=== PATIENT | female | born 1960 | race Caucasian/White ===

== ENCOUNTER 2018-05-07 14:41 | Emergency (ER) | payer OTHER ==
[~2018-05-07] VITALS: Ht 157.5 cm; Wt 59.0 kg
[~2018-05-07 14:41] MED LIST: AMBEREN; ANAPROX DS550 MG PO; ATENOLOL; CALCIUM; CALCIUM +D & M1 EAC1 PO; CARISOPRODOL; CARISOPRODOL 3350 MG; CEFDINIR300 MG PO; CIPROFLOXACIN500 M1 PO; CLONIDINE0.1 PO; CORTISPORIN OTI10 ML OTIC; ESTRACE PO; FISH OIL 1,0001 EAC5; FLEXERIL PO; HYDROCODON-ACE1 EAC7 PO; HYDROCODON-ACE1 EAC8 PO; LIPITOR 20 MG T20 M1; LIPITOR20 MG PO; LISINOPRIL10 MG; LOPRESSOR 50 MG50 M1; LOPRESSOR 50 MG50 M1 PO; MEDROL DOSPAK21 TAB PO; METHADONE HCL 110 M1; METOPROLOL PO; MULTIVITAMINS PO; NORCO; NORCO 10-325 T1 EACH PO; NORCO 5-325 TA1 EACH; NORCO 5-325 TA1 EACH PO; ONDANSETRON HCL4 M2 PO; PERCOCET 10-321 EACH PO; PERCOCET 5-3251 EACH PO; PHENERGAN 25 MG25 M1 PO; PREDNISONE 10 M10 MG PO; PREDNISONE 20 M20 M1 PO; PRINIVIL5 MG PO; ROBAXIN 750 MG750 M1 PO; ROVIN-CF OF TA1 EACH; SUBOXONE 8 MG-1 EAC1 SL; SUBOXONE 8 MG-1 EAC2 SL; TOPROL XL100 MG; TRAMADOL 50 MG50 MG PO; VALIUM2 MG PO; VICODIN 5-5001 EACH PO; VITAMIN B-12500 MCG PO; VITAMIN D-32000 UNIT; VITAMINC500 PO; ZOFRAN 4 MG ORAL4 MG PO; ZOFRAN ODT4 MG PO; ZOFRAN4 MG PO
[2018-05-07] MEDS ORDERED: ONDANSETRON HCL4 M2 PO (14:56)
[2018-05-07 16:02] VITALS: BP 134/64
== END 2018-05-07 16:03 | disposition home or self-care (01) ==
LOC: M.ERS 14:41
DX: M54.5 Low back pain (principal); I10 Essential (primary) hypertension; M79.7 Fibromyalgia; Z88.5 Allergy status to narcotic agent; Z88.6 Allergy status to analgesic agent; Z88.8 Allergy status to other drugs, medicaments and biological substances; Z98.890 Other specified postprocedural states; Z90.710 Acquired absence of both cervix and uterus

== ENCOUNTER 2018-05-31 23:49 | Emergency (ER) | payer OTHER ==
[~2018-05-31] VITALS: Ht 160 cm; Wt 59.9 kg
[2018-06-01] MEDS ORDERED: BACLOFEN 10MG T10 MG PO (00:51)
[2018-06-01 01:08] VITALS: BP 163/85
== END 2018-06-01 01:09 | disposition home or self-care (01) ==
LOC: M.ERS 23:49
DX: G89.29 Other chronic pain (principal); M54.5 Low back pain; I10 Essential (primary) hypertension; M79.7 Fibromyalgia; Z88.5 Allergy status to narcotic agent; Z88.6 Allergy status to analgesic agent; Z88.8 Allergy status to other drugs, medicaments and biological substances; Z90.710 Acquired absence of both cervix and uterus; Z98.890 Other specified postprocedural states

== ENCOUNTER 2018-07-22 01:00 | Emergency (ER) | payer OTHER ==
[~2018-07-22] VITALS: Ht 160 cm; Wt 59.0 kg
[~2018-07-22 01:00] MED LIST changes: +BACLOFEN 10MG T10 MG PO
[2018-07-22] MEDS ORDERED: CARISOPRODOL 3350 MG PO (01:09)
[2018-07-22] MEDS ORDERED: NORCO 5-325 TA1 EACH PO (01:16)
[2018-07-22] MEDS ORDERED: FLEXERIL PO (01:16)
[2018-07-22 01:24] VITALS: BP 167/106
== END 2018-07-22 01:24 | disposition home or self-care (01) ==
LOC: M.ERS 01:00
DX: S39.012A Strain of muscle, fascia and tendon of lower back, initial encounter (principal); I10 Essential (primary) hypertension; Z90.710 Acquired absence of both cervix and uterus; M79.7 Fibromyalgia; Z88.5 Allergy status to narcotic agent; Z88.8 Allergy status to other drugs, medicaments and biological substances; X58.XXXA Exposure to other specified factors, initial encounter; Y93.89 Activity, other specified; Y92.89 Other specified places as the place of occurrence of the external cause; Y99.8 Other external cause status

== ENCOUNTER 2018-09-14 01:17 | Emergency (ER) | payer OTHER ==
[~2018-09-14] VITALS: Ht 160 cm; Wt 60.3 kg
[~2018-09-14 01:17] MED LIST changes: +CARISOPRODOL 3350 MG PO
[2018-09-14 03:06] VITALS: BP 120/72
== END 2018-09-14 03:07 | disposition home or self-care (01) ==
LOC: M.ERS 01:17
DX: G89.29 Other chronic pain (principal); M54.5 Low back pain; R11.2 Nausea with vomiting, unspecified; R51 Headache; I10 Essential (primary) hypertension; M79.7 Fibromyalgia; F17.210 Nicotine dependence, cigarettes, uncomplicated; Z90.710 Acquired absence of both cervix and uterus; Z98.890 Other specified postprocedural states; Z88.6 Allergy status to analgesic agent; Z88.5 Allergy status to narcotic agent; Z88.8 Allergy status to other drugs, medicaments and biological substances

== ENCOUNTER 2018-12-28 14:29 | Emergency (ER) | payer OTHER ==
[~2018-12-28] VITALS: Ht 157.5 cm; Wt 59.9 kg
[2018-12-28] MEDS ORDERED: BUTALB-APAP-CA1 EACH PO (15:31)
[2018-12-28 16:07] VITALS: BP 146/83
== END 2018-12-28 16:08 | disposition home or self-care (01) ==
LOC: M.ERS 14:29
DX: M54.5 Low back pain (principal); R51 Headache; I10 Essential (primary) hypertension; M79.7 Fibromyalgia; Z90.710 Acquired absence of both cervix and uterus; Z98.890 Other specified postprocedural states; Z88.5 Allergy status to narcotic agent; Z88.6 Allergy status to analgesic agent; Z88.8 Allergy status to other drugs, medicaments and biological substances

== ENCOUNTER 2019-03-18 20:00 | Emergency (ER) | payer OTHER ==
[~2019-03-18] VITALS: Ht 157.5 cm; Wt 60.3 kg
[~2019-03-18 20:00] MED LIST changes: +BUTALB-APAP-CA1 EACH PO
[2019-03-18 21:16] VITALS: BP 150/80
== END 2019-03-18 21:17 | disposition home or self-care (01) ==
LOC: M.ERS 20:00
DX: M54.30 Sciatica, unspecified side (principal); G89.29 Other chronic pain; M54.9 Dorsalgia, unspecified; I10 Essential (primary) hypertension; M79.7 Fibromyalgia; Z98.890 Other specified postprocedural states; Z88.5 Allergy status to narcotic agent; Z88.6 Allergy status to analgesic agent; Z88.8 Allergy status to other drugs, medicaments and biological substances; Z90.710 Acquired absence of both cervix and uterus

== ENCOUNTER 2019-11-13 18:13 | Emergency (ER) | payer OTHER ==
[~2019-11-13] VITALS: Ht 157.5 cm; Wt 57.6 kg
[2019-11-13] MEDS ORDERED: MEDROLDOSEPACK PO (19:12)
[2019-11-13 19:25] VITALS: BP 115/70
== END 2019-11-13 19:26 | disposition home or self-care (01) ==
LOC: M.ERS 18:13
DX: M54.5 Low back pain (principal); G89.29 Other chronic pain; I10 Essential (primary) hypertension; M79.7 Fibromyalgia; Z90.710 Acquired absence of both cervix and uterus; Z90.49 Acquired absence of other specified parts of digestive tract; Z98.890 Other specified postprocedural states; Z88.6 Allergy status to analgesic agent; Z88.8 Allergy status to other drugs, medicaments and biological substances

== ENCOUNTER 2020-01-04 19:08 | Emergency (ER) | payer OTHER ==
[~2020-01-04] VITALS: Ht 157.5 cm; Wt 58.1 kg
[~2020-01-04 19:08] MED LIST changes: +MEDROLDOSEPACK PO
[2020-01-04 21:06] VITALS: BP 140/70
== END 2020-01-04 21:07 | disposition home or self-care (01) ==
LOC: M.ERS 19:08
DX: M54.5 Low back pain (principal); R10.32 Left lower quadrant pain; M79.18 Myalgia, other site; I10 Essential (primary) hypertension; Z90.89 Acquired absence of other organs; Z98.890 Other specified postprocedural states; Z90.710 Acquired absence of both cervix and uterus; Z88.5 Allergy status to narcotic agent; Z88.6 Allergy status to analgesic agent; Z88.8 Allergy status to other drugs, medicaments and biological substances

== ENCOUNTER 2020-04-20 14:04 | Emergency (ER) | payer OTHER ==
[~2020-04-20] VITALS: Ht 157.5 cm; Wt 58.1 kg
[2020-04-20] MEDS ORDERED: TOPROL XL25 MG PO (14:18)
[2020-04-20] MEDS ORDERED: LOPRESSOR50 MG PO (14:18)
[2020-04-20] MEDS ORDERED: ZESTRIL40 MG PO (14:18)
[2020-04-20 14:44] LABS: ABSOLUTE BASOPHILS 0.2 thou/uL (0.0-0.2); ABSOLUTE LYMPHOCYTES 2.3 thou/uL (0.8-5.3); ABSOLUTE MONOCYTES 0.4 thou/uL (0.0-1.2); ABSOLUTE NEUTROPHILS 7.4 thou/uL (1.6-8.1); BASOPHILS 1.5 %; EOSINOPHILS 0.4 %; HEMATOCRIT 39.1 % (37.0-47.0); HEMOGLOBIN 12.7 gm/dL (12.0-15.0); LYMPHOCYTES 22.6 %; MCH 28.8 pg (26.0-34.0); MCHC 32.5 g/dL (28.0-37.0); MCV 88.4 fL (80.0-100.0); MONOCYTES 3.9 %; MPV 8.6 fl. (7.2-11.1); NUCLEATED RBCS 0 /100WBC; PLATELET COUNT* 326 thou/uL (150-400); POLYS 71.6 %; RBC 4.43 mil/uL (4.20-5.00); RDW-CV 15.1 % (10.5-14.5); WBC 10.3 thou/uL (4.0-11.0)
[2020-04-20 14:52] LABS: CALCIUM 8.6 mg/dL (8.5-10.1); CREATININE 0.7 mg/dL (0.6-1.3); POTASSIUM 3.5 mmol/L (3.5-5.1)
[2020-04-20 14:58] LABS: INFLUENZA A ANTIGEN Negative (Negative); INFLUENZA B ANTIGEN Negative (Negative)
[2020-04-20 14:58] LABS: ALBUMIN 3.7 g/dL (3.4-5.0); TOTAL BILIRUBIN 0.3 mg/dL (<0.1-1.0); TOTAL PROTEIN 6.9 g/dL (6.4-8.2)
[2020-04-20] MEDS ORDERED: HYDROCODON-ACE1 EAC7 PO (16:15)
[2020-04-20 16:36] VITALS: BP 130/80
--- NOTE | 2020-04-21 12:40 | EKG ---
[place] [address] ELECTROCARDIOGRAM REPORT Name: CINDA CHAVEZ Alla Room: [facility]#: [id number] Admission: 04/20/20 Attend Phys: Discharge: 04/20/20 Date of : 56 Date of Service: 04/20/20 1422 Report #: [id number] THIS REPORT FOR: //name// [facility] ED Test Date: 2020-04-20 Test Time: 14:22:14 Pat Name: CINDA CHAVEZ Department: Room: Gender: [employer] Operator: [facility] : 1960 Requested By: Dashawn Maria Order Number: [id number] MD: Cricket Adan Measurements Intervals [place] Rate: 61 P: -7 HI: 157 QRS: 18 QRSD: 94 T: 23 QT: 435 QTc: 439 Interpretive Statements Sinus rhythm Compared to ECG 03/10/2011 09:26:52 ST (T wave) deviation no longer present Electronically Signed On 04-21-2020 12:40:12 [employer] by Cricket Adan [email or web address] <ELECTRONICALLY SIGNED> By: Cricket Adan MD, FACC 04/21/20 1240 1422 1422 Cricket Adan MD, [facility] /EPI
== END 2020-04-20 16:39 | disposition home or self-care (01) ==
LOC: M.ERS 14:04
PROVIDERS: Physician Assistant
DX: J06.9 Acute upper respiratory infection, unspecified (principal); Z20.828 Contact with and (suspected) exposure to other viral communicable diseases; I10 Essential (primary) hypertension; M79.7 Fibromyalgia; Z98.890 Other specified postprocedural states; Z90.89 Acquired absence of other organs; Z90.710 Acquired absence of both cervix and uterus; Z88.5 Allergy status to narcotic agent; Z88.8 Allergy status to other drugs, medicaments and biological substances

== ENCOUNTER 2020-05-20 19:30 | Emergency (ER) | payer OTHER ==
[~2020-05-20] VITALS: Ht 157.5 cm; Wt 78.0 kg
[~2020-05-20 19:30] MED LIST changes: +LOPRESSOR50 MG PO; +TOPROL XL25 MG PO; +ZESTRIL40 MG PO
[2020-05-20] MEDS ORDERED: AMBIEN5 MG PO (19:56)
[2020-05-20 20:51] VITALS: BP 167/96
== END 2020-05-20 20:51 | disposition left against medical advice (07) ==
LOC: M.ERS 19:30
DX: M54.5 Low back pain (principal); Z53.21 Procedure and treatment not carried out due to patient leaving prior to being seen by health care provider